=== PATIENT | male | born 1995 | race Caucasian/White ===

== ENCOUNTER 2022-09-11 00:34 | Emergency (ER) | payer SELFPAY ==
[~2022-09-11] VITALS: Ht 170.1 cm; Wt 70.3 kg
--- NOTE | 2022-09-11 00:45 | ED Lower Extremity ---
General Stated Complaint: RIGHT ANKLE INJ History of Present Illness Date Seen by Provider: September 11, 2022 Time Seen by Provider: 00:43 Initial Comments 27-year-old male who is hard of hearing is here with complaints of right ankle swelling after he twisted it earlier today while playing softball. Denies sensory loss. Patient borrowed a pair of crutches from his cousin and is using that because he is unable to bear weight on that ankle. Allergies and Home Medications Patient Home Medication List Home Medication List Reviewed: Yes Review of Systems Constitutional: no symptoms reported EENTM: no symptoms reported Respiratory: no symptoms reported Cardiovascular: no symptoms reported Gastrointestinal: no symptoms reported Genitourinary: no symptoms reported Musculoskeletal: joint pain, joint swelling Skin: no symptoms reported Psychiatric/Neurological: No Symptoms Reported Physical Exam Vital Signs Vital Signs - First Documented 09/11/22 00:40 Temp 36.4 Pulse 91 Resp 16 B/P (MAP) 159/61 (93) Pulse Ox 98 O2 Delivery Room Air Capillary Refill : Height, Weight, BMI Height: '" Weight: lbs. oz. kg; BMI Method: General Appearance: WD/WN, no apparent distress HEENT: PERRL/EOMI Neck: full range of motion Knees: right knee non-tender, right knee normal inspection, right knee normal range of motion, right knee no evidence of injury Ankles: right ankle normal range of motion, right ankle pain, right ankle soft tissue tenderness, right ankle swelling (Swelling to the right lateral malleolus area with localized tenderness) Feet: right foot non-tender, right foot normal inspection, right foot normal range of motion, right foot no evidence of injury Progress/Results/Core Measures Results/Orders My Orders Orders - YVONNE SUAZO MD Ankle 3 View Right (09/11/22 00:45) Ice: Apply To Affected Area (09/11/22 00:51) Vital Signs/I&O 09/11/22 00:40 Temp 36.4 Pulse 91 Resp 16 B/P (MAP) 159/61 (93) Pulse Ox 98 O2 Delivery Room Air Progress Progress Note : Progress Note 1. RIGHT FIBULA FRACTURE- HAIRLINE FRACTURE: - XR RIGHT ANKLE: X-ray read by me since there is no radiology read of XR at night. Appears as a hairline fracture at the distal fibula, no displacement - Crutches/ boot - Follow up with Ortho clinic within the next 7 days. Call clinic in the morning and make appointment. - Advised ice application - Advised Ibuprofen and Tylenol for pain as needed - Keep leg elevated. - Radiologist does not read x-rays at night. If there is a discrepancy in the x- ray read by the ER physician, the patient will be called back by hospital staff with the correct radiologist report. Departure Impression Primary Impression: Fracture of fibula, distal, right, closed Qualified Codes: S82.831A - Other fracture of upper and lower end of right fibula, initial encounter for closed fracture Disposition: HOME, SELF-CARE Condition: Stable Departure-Patient Inst. Referrals: NO,LOCAL PHYSICIAN (PCP) Primary Care Physician RUBA MEJIA MD Patient Instructions: Fibula Fracture (DC), How to Use Crutches, Going Up and Down Curbs or Stairs With a Walker or Crutches Add. Discharge Instructions: - Crutches/ boot - Follow up with Ortho clinic within the next 7 days. Call clinic in the morning and make appointment. - Advised ice application - Advised Ibuprofen and Tylenol for pain as needed - Keep leg elevated. - Radiologist does not read x-rays at night. If there is a discrepancy in the x- ray read by the ER physician, the patient will be called back by hospital staff with the correct radioligist report. YVONNE SUAZO MD September 11, 2022 00:45
[2022-09-11 01:36] VITALS: BP 159/61
--- NOTE | 2022-09-11 08:00 | Diagnostic Imaging Report ---
HISTORY: Right ankle injury with swelling TECHNIQUE: 3 views of the right ankle COMPARISON: None FINDINGS: No acute fracture or dislocation is seen in the right ankle. Alignment is normal. Ankle mortise is symmetric and the talar dome is intact. IMPRESSION: 1. No acute osseous abnormality is seen in the right ankle. Dictated by: Dictated on workstation # [id number]
== END 2022-09-11 01:38 | disposition home or self-care (01) ==
LOC: ER FS 00:37
DX: S82.831A Other fracture of upper and lower end of right fibula, initial encounter for closed fracture (principal); X50.1XXA Overexertion from prolonged static or awkward postures, initial encounter; Y93.64 Activity, baseball
CPT/HCPCS: 73610; 99283; L2114